=== PATIENT | male | born 1960 | race American Indian/Alaskan Native ===

== ENCOUNTER 2018-04-05 19:44 | Emergency (ER) | payer OTHER ==
[2018-04-05 19:58] VITALS: RESP 18
[2018-04-05 20:30] VITALS: BP 127/68; PULSE 62; TEMP 98.7; O2SAT 100
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
--- NOTE | 2018-04-06 07:50 | RAD ---
PROCEDURE: Cervical Spine Radiographs. HISTORY: Pain. COMPARISON: None. FINDINGS: BONES: Alignment maintained. No fracture. Dens Intact. DISC SPACES: Degenerative changes and narrowing of the intervertebral disc spaces noted more prominent at C5-C6 and C6-C7. SOFT TISSUES: Normal. No prevertebral soft tissue swelling. OTHER FINDINGS: None. IMPRESSION: Straightening of the cervical spine associated with moderate degenerative changes. No radiographic evidence of acute fracture or subluxation. Preliminary report was submitted by [facility].
== END 2018-04-05 21:49 | disposition home or self-care (01) ==
LOC: C.ER 19:44
DX: S16.1XXA Strain of muscle, fascia and tendon at neck level, initial encounter (principal); V89.2XXA Person injured in unspecified motor-vehicle accident, traffic, initial encounter